=== PATIENT | female | born 1970 | race Caucasian/White ===

== ENCOUNTER 2020-03-17 07:51 | Outpatient (CLI) | payer OTHER ==
[2020-03-17] MEDS ORDERED: FENTANYL PF 100 MCG/2ML ONE ×2 (08:23)
[2020-03-17] MEDS ORDERED: MIDAZOLAM 1 MG/ML, 5ML ONE (08:23)
== END 2020-03-17 23:59 | disposition home or self-care (01) ==
LOC: RAD 07:51
PROVIDERS: ATTEND Orthopaedic Surgery Adult Reconstructive Orthopaedic Surgery
DX: M25.551 Pain in right hip (principal); M25.552 Pain in left hip; M16.11 Unilateral primary osteoarthritis, right hip; M24.151 Other articular cartilage disorders, right hip; J45.909 Unspecified asthma, uncomplicated; Z88.8 Allergy status to other drugs, medicaments and biological substances
CPT/HCPCS: 73721; 99156; 99157; J2250; J3010

== ENCOUNTER → 2020-07-02 | Outpatient (CLI) | payer OTHER ==
[~2020-07-02] MED LIST: ALPRazolam 1MG TAB ONE
== END | disposition home or self-care (01) ==
LOC: RAD 11:59
PROVIDERS: ATTEND Anesthesiology
DX: M51.36 Other intervertebral disc degeneration, lumbar region (principal); M48.07 Spinal stenosis, lumbosacral region
CPT/HCPCS: 72148